=== PATIENT | female | born 1995 ===

== ENCOUNTER 2018-01-25 23:35 | Emergency (ER) | payer BC ==
--- NOTE | 2018-01-26 00:41 | ED ---
Upper Extremity Pain - HPI Summary HPI Summary: Patient is a 22-year-old female who presents emergency department for a finger injury that occurred today. Patient states she was struck a football to her right fourth digit. Symptoms are mild in severity. Associated symptoms of bruising and swelling of the digit. Touching and bending finger makes symptoms worse. Rest makes symptoms better. - History of Current Complaint Chief Complaint: EDExtremityUpper Stated Complaint: FINGER INJURY Time Seen by Provider: 01/26/18 00:16 Hx Obtained From: Patient - Allergies/Home Medications Allergies/Adverse Reactions: Allergies Allergy/AdvReac Type Severity Reaction Status Date / Time No Known Allergies Allergy Verified 01/25/18 23:39 Home Medications: Home Medications Ascorbic Acid TAB* [Vitamin C TAB*] 1,000 mg PO DAILY 01/26/18 [History Confirmed 01/26/18] Biotin 1,000 mcg PO DAILY 01/26/18 [History Confirmed 01/26/18] Cyanocobalamin (Vitamin B-12) [B-12] 1,000 mcg PO DAILY 01/26/18 [History Confirmed 01/26/18] Ferrous Sulfate [Iron] 325 mg PO DAILY 01/26/18 [History Confirmed 01/26/18] Norethindrone AC-Eth Estradiol [Loestrin 21 1.5-30 Tablet] 1 each PO DAILY 01/26 [History Confirmed 01/26/18] PMH/Surg Hx/FS Hx/Imm Hx Previously Healthy: Yes Infectious Disease History: No Infectious Disease History: Denies: Traveled Outside the [place] in Last 30 Days - Social History Occupation: Student Lives: Dormitory/Roommates Alcohol Use: Rare Substance Use Type: Reports: None Smoking Status (MU): Never Smoked Tobacco Review of Systems Positive: Other - bruising and swelling to right fourth digit of hand Positive: Bruising Negative: Weakness, Paresthesia, Numbness All Other Systems Reviewed And Are Negative: Yes Physical Exam Triage Information Reviewed: Yes Vital Signs On Initial Exam: Initial Vitals Temp Pulse Resp BP Pulse Ox 98.1 F 70 16 125/82 99 01/25/18 23:38 01/25/18 23:38 01/25/18 23:38 01/25/18 23:38 01/25/18 23:38 Vital Signs Reviewed: Yes Appearance: Positive: Well-Appearing - Patient sitting in bed in no acute distress. Friend present. Head/Face: Positive: Normal Head/Face Inspection Eyes: Positive: Normal, CRYS Neck: Positive: Supple Musculoskeletal: Positive: Other - Ecchymosis and mild edema noted to the fourth digit of the right hand approximately. Minimal pain over the MCP joint. Otherwise no hand or wrist pain. Full range of motion of the digit. Neurological: Positive: Normal, CN Intact II-III Psychiatric: Positive: Normal Procedures - Splinting Pre-Made Type: Finger splint Diagnostics - Vital Signs Vital Signs Temp Pulse Resp BP Pulse Ox 01/25/18 23:38 98.1 F 70 16 125/82 99 - Laboratory Lab Statement: Any lab studies that have been ordered have been reviewed, and results considered in the medical decision making process. Course/Dx - Course Course Of Treatment: Patient presenting to the ER for a minor finger injury. X- rays reviewed by myself and Dr. Peetrson and shows a nondisplaced fracture throught the base of the proximal phalange. Results were discussed. Splint placed. To ice and elevate. Tylenol or Motrin for pain as directed. To schedule f.u with ortho. Pt. understands and agrees with plan. - Diagnoses Differential Diagnosis/HQI/PQRI: Positive: Contusion, Fracture (Closed), Strain , Sprain Provider Diagnoses: Finger fracture Discharge - Sign-Out/Discharge Documenting (check all that apply): Discharge/Admit/Transfer - Discharge Plan Condition: Good Disposition: HOME Patient Education Materials: Finger Fracture (ED) Referrals: [facility] - Jose Ramon MEANS [Primary Care Provider] - Rochelle Ortiz MD [Medical Doctor] - Additional Instructions: Schedule a follow up appointment with orthopedics Ice and elevate Splint for comfort Tylenol or Motrin for pain as directed - Billing Disposition and Condition Condition: GOOD Disposition: HOME
[2018-01-26 01:16] VITALS: BP 100/66
--- NOTE | 2018-01-26 07:18 | RAD ---
INDICATION: Right ring finger injury. TECHNIQUE: 3 views of the right ring finger were obtained. FINDINGS: There is diffuse soft tissue swelling which is most prominent at the proximal interphalangeal joint. There is an oblique fracture extending to the volar base of the middle phalanx to the articular margin. The fracture fragment appears nondisplaced. IMPRESSION: NONDISPLACED VOLAR PLATE FRACTURE BASE OF THE MIDDLE PHALANX.
== END 2018-01-26 01:20 | disposition home or self-care (01) ==
LOC: ED 23:35
DX: S62.654A Nondisplaced fracture of middle phalanx of right ring finger, initial encounter for closed fracture (principal); W21.01XA Struck by football, initial encounter; Y92.9 Unspecified place or not applicable
CPT/HCPCS: 73140; 99282